=== PATIENT | female | born 1980 | race African-American/Black ===

== ENCOUNTER 2020-06-29 19:48 | Emergency (ER) | payer OTHER ==
[~2020-06-29] VITALS: Ht 162.6 cm; Wt 100.2 kg
== END 2020-06-29 21:42 | disposition home or self-care (01) ==
LOC: FSED 20:09
DX: U07.1 COVID-19 (principal); N92.1 Excessive and frequent menstruation with irregular cycle; R10.30 Lower abdominal pain, unspecified; E87.6 Hypokalemia
CPT/HCPCS: 99283